=== PATIENT | male | born 1985 | race Hispanic/Latino ===

== ENCOUNTER → 2020-07-06 | Day surgery (SDC) | payer SELFPAY ==
[2020-07-03 11:15] LABS: BASOPHILS # (AUTO) 0.1 (0.0-0.1); BASOPHILS % 0.7 % (0.0-1.0); EOSINOPHILS # (AUTO) 0.2 (0.0-0.4); EOSINOPHILS % 2.6 % (0.0-6.0); HEMATOCRIT 39.6 % (38.2-49.6); HEMOGLOBIN 13.1 g/dL (14.0-18.0); LYMPHOCYTES # (AUTO) 2.3 (1.0-3.2); LYMPHOCYTES % 30.5 % (18.0-39.1); MEAN CORPUSCULAR HEMOGLOBIN 30.7 pg (28-32); MEAN CORPUSCULAR HGB CONC 33.1 g/dL (31-35); MEAN CORPUSCULAR VOLUME 92.7 fL (81-99); MONOCYTES # (AUTO) 0.5 (0.2-0.8); MONOCYTES % 6.4 % (4.4-11.3); NEUTROPHILS # (AUTO) 4.5 (2.1-6.9); PLATELET COUNT 178 x10e3/uL (140-360); RED BLOOD COUNT 4.27 x10e6/uL (4.3-5.7); RED CELL DISTRIBUTION WIDTH 12.8 % (11.7-14.4)
[2020-07-03 11:42] LABS: ANION GAP 12.1 mmol/L (8-16); BLOOD UREA NITROGEN 13 mg/dL (7-26); BUN/CREATININE RATIO 13 (6-25); CALCIUM 9.3 mg/dL (8.4-10.2); CARBON DIOXIDE 26 mmol/L (22-29); CHLORIDE 106 mmol/L (98-107); CREATININE, SERUM 1.01 mg/dL (0.72-1.25); EST GLOMERULAR FILTRATION RATE > 60 ML/MIN (60-); GLUCOSE 106 mg/dL (74-118); POTASSIUM 4.1 mmol/L (3.5-5.1); SODIUM 140 mmol/L (136-145)
[~2020-07-06] MED LIST: ALLOPURINOL300 MG PO; BUPIVACAINE 0.25% 30ML SDV INJ ONE; DEXAMETHASONE SOD PHOS INJ 4 MG/ML VIAL ONE; FENTANYL CITRATE/PF 100MCG/2 ML INJ ONE; HYDROCODONE/APAP 7.5MG-325MG 1 EA TAB ONE; KETOROLAC TROMETHAMINE 30 MG/ML VIAL ONE; LIDOCAINE 1% W/EPINEPHRINE 20 ML VIAL ONE; LIDOCAINE HCL 2% LOCAL INJ 5 ML SDV VIAL INJ ONE; LIPITOR10 MG PO; MIDAZOLAM HCL 2 MG/2 ML VIAL ONE; ONDANSETRON HCL INJ 2MG/ML 2ML 2 MG/ML VIAL ONE; PIOGLITAZONE HC45 MG PO; PROPOFOL IV EMULSION 10 MG/ML 20 ML VIAL ONE; SEVOFLURANE INHAL SOLN 250 ML PEN BTL ONE
[2020-07-06 13:50] VITALS: BP 111/76
--- NOTE | 2020-07-06 14:25 | Operative Report ---
DATE OF PROCEDURE: 07/06/2020 SURGEON: Deacon Goodrich MD PREOPERATIVE DIAGNOSIS: Left inguinal hernia. POSTOPERATIVE DIAGNOSIS: Left inguinal hernia. OPERATION PERFORMED: Repair of left direct inguinal hernia with large Prolene hernia system. ANESTHESIA: General. COMPLICATIONS: None. ESTIMATED BLOOD LOSS: Minimal. DESCRIPTION OF PROCEDURE: The patient was lying in bed in the supine position under good general anesthesia, the abdomen was prepped with Betadine solution and draped in the usual manner. A left inguinal incision was made, it was carried down through the subcutaneous tissue down to the external oblique aponeurosis. External oblique was then opened along the length of its fibers and the external inguinal ring was opened. The cord was then mobilized and retracted. Exploration of the cord at this point revealed that there was no definite vas visualized. 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 The case was turned over at this point to Dr. Epps, who proceeded to do vasectomy. Once he was finished, the case was returned back to [place]. There was no indirect hernia sac present, but there was a bulging defect in the direct space. The preperitoneal space was then entered right through the internal ring and a pocket was created without any difficulty. A large Prolene Hernia System was placed in the preperitoneal space, and the underlay patch was deployed without any problems. The overlay patch was then placed over the floor and split inferolaterally to allow for passage of the cord. The mesh was then sutured to the conjoined tendon and the inguinal ligament using interrupted sutures of 2-0 Vicryl. This gave us a satisfactory repair without any tension. All layers were infiltrated on the way out with solution of 0.25% Marcaine and 1% lidocaine mixed in equal parts. The external oblique aponeurosis was closed with a running suture of 2-0 Vicryl, the subcutaneous tissue was approximated with 3-0 plain, and the skin was closed with clips. A dressing was applied. The sponge, lap, and needle count was correct. The patient tolerated the procedure well and returned to the recovery room in stable condition. Deacon Goodrich MD JLR/MODL /[id number]
--- NOTE | 2020-07-07 04:37 | Operative Report ---
DATE OF PROCEDURE: 07/06/2020 SURGEON: Tj Epps MD PREOPERATIVE DIAGNOSIS: Desires sterilization. POSTOPERATIVE DIAGNOSIS: Desires sterilization. OPERATION PERFORMED: Left-sided meniscectomy. ANESTHESIA: General. COMPLICATIONS: None. CLINICAL SUMMARY: Topher Beal is a 34-year-old man and desires permanent sterilization. He underwent an uneventful right-sided vasectomy in the office. The left side, I could not isolate the vas despite total scrotal exploration, I did find a hernia. The patient was brought for hernia repair. We will plan on performing the vas completion same time. He is aware of the risks of bleeding, infection, injury to adjacent structures, failure of the procedure, need for additional procedures and elected to proceed. is also a risk, he was instructed the use contraception until I see him in the office, three months postoperatively with semen specimen analysed. OPERATIVE PROCEDURE IN DETAIL: Informed consent was verified, Topher Beal was properly identified, taken to the operating room, with Dr. Goodrich began an inguinal hernia repair. Wound exposure was completed and the spermatic cord was isolated. I scrubbed in and evaluated the spermatic cord. There was no abnormal appearing vas then I could locate. There was one structure that appeared firm and maybe an attenuated vas. We doubly hemoclipped proximally and distally and resected a segment of this and sent it to the pathologist for evaluation. It may be that this patient has attenuated vas and it sterile on the left-hand side. Our dissection of the spinal cord . The case was then turned over back to Dr. Goodrich with completion of the hernia repair. Tj Epps MD OH/MODL /[id number]
== END | disposition home or self-care (01) ==
LOC: OR 06:38
PROVIDERS: ATTEND Surgery
DX: K40.90 Unilateral inguinal hernia, without obstruction or gangrene, not specified as recurrent (principal); Z30.2 Encounter for sterilization; R00.1 Bradycardia, unspecified; K21.9 Gastro-esophageal reflux disease without esophagitis; E66.9 Obesity, unspecified; E11.9 Type 2 diabetes mellitus without complications; Z01.810 Encounter for preprocedural cardiovascular examination; Z01.812 Encounter for preprocedural laboratory examination; Z11.59 Encounter for screening for other viral diseases; Z79.84 Long term (current) use of oral hypoglycemic drugs
CPT/HCPCS: 36415 ×2; 49505; 55250; 80048; 82948; 85025; 88302; 93005; C1781; J1100; J1885; J2001; J2250; J2405; J2704; J3010; U0002